=== PATIENT | male | born 1975 | race Caucasian/White ===

== ENCOUNTER 2016-09-21 22:14 | Emergency (ER) | payer MEDICAID, OTHER ==
[~2016-09-21] VITALS: Ht 182.9 cm; Wt 127.7 kg
[~2016-09-21 22:14] MED LIST: GABA-531 PO; OMEP20 PO; SERT50TA12 PO
[2016-09-21] MEDS ORDERED: TRAM50TA4 PO (22:27)
[2016-09-21] MEDS ORDERED: MORP15 PO (22:27)
[2016-09-21 23:47] LABS: BASOPHILS % (AUTO) 0.6 % (0.0-2.0); EOSINOPHILS % (AUTO) 1.6 % (1.0-6.0); HEMATOCRIT 41.9 % (41-53); HEMOGLOBIN 13.4 g/dL (13.5-17.5); LYMPHOCYTES # (AUTO) 2.6 K/uL (1.0-4.8); LYMPHOCYTES % (AUTO) 37.8 % (22.0-44.0); MEAN CORPUSCULAR HEMOGLOBIN 25.7 pg (26.0-34.0); MEAN CORPUSCULAR VOLUME 80 fL (80-100); MONOCYTES # (AUTO) 0.5 K/uL (0.1-1.0); MONOCYTES % (AUTO) 6.9 % (2.0-9.0); NEUTROPHILS # (AUTO) 3.6 K/uL (1.8-7.7); NEUTROPHILS % (AUTO) 53.1 % (40.0-70.0); PLATELET COUNT (AUTO) 200 K/uL (150-450); RED BLOOD CELL COUNT(AUTO) 5.24 MIL/uL (4.50-5.90); RED CELL DISTRIBUTION WIDTH 16.5 % (11.5-14.5); WHITE BLOOD COUNT (AUTO) 6.8 K/uL (4.5-11.0)
[2016-09-21 23:57] LABS: ANION GAP 11 mmol/L (8-16); CALCIUM, TOTAL 8.4 mg/dL (8.8-10.5); CARBON DIOXIDE 26 mmol/L (22-29); CHLORIDE 104 mmol/L (98-107); GLOMERULAR FILTR. RATE CALC > 60 mL/min (>60); POTASSIUM 3.8 mmol/L (3.5-5.1); SODIUM SERUM 141 mmol/L (136-145); UREA NITROGEN, BLOOD 12 mg/dL (7-18)
[2016-09-22] LABS: ALANINE AMINOTRANSFERASE 38 U/L (12-78); ALBUMIN 3.9 g/dL (3.4-5.0); ASPARTATE AMINOTRANSFERASE 29 U/L (15-37); BILIRUBIN,TOTAL 0.5 mg/dL (0.1-1.0); TOTAL PROTEIN, SERUM 7.4 g/dL (6.4-8.2)
[2016-09-22] MEDS ORDERED: TraMADol HCL 50 MG TABLET PO ONE (02:30)
[2016-09-22] MEDS ORDERED: MORPHINE SULFATE 10 MG/ML SYRINGE IM ONE (03:15)
[2016-09-22] MEDS ORDERED: DEXAMETHASONE SOD PHOS 4 MG/ML 5 ML VIAL IM ONE (03:15)
[2016-09-22] MEDS ORDERED: LORazepam 2 MG/ML VIAL IM ONE (03:15)
[2016-09-22 05:55] VITALS: BP 116/89
== END 2016-09-22 07:26 | disposition home or self-care (01) ==
LOC: EMS 22:16
DX: S39.012A Strain of muscle, fascia and tendon of lower back, initial encounter (principal); F11.90 Opioid use, unspecified, uncomplicated; F12.90 Cannabis use, unspecified, uncomplicated; F15.90 Other stimulant use, unspecified, uncomplicated; F17.210 Nicotine dependence, cigarettes, uncomplicated; Z88.0 Allergy status to penicillin; Z88.8 Allergy status to other drugs, medicaments and biological substances; X58.XXXA Exposure to other specified factors, initial encounter; Y93.89 Activity, other specified; Y92.89 Other specified places as the place of occurrence of the external cause; Y99.8 Other external cause status
CPT/HCPCS: 36415; 71010; 80053; 84484; 85025; 93005; 96372; 99285; J1100; J2060; J2270

== ENCOUNTER 2016-11-11 01:16 | Inpatient (IN) | payer MEDICAID, OTHER ==
[~2016-11-11] VITALS: Ht 182.9 cm; Wt 117.0 kg
[2016-11-11] VITALS (9 sets, daily range): BP systolic 128–148; BP diastolic 78–91
[~2016-11-11 01:16] MED LIST changes: +MORP15 PO; -SERT50TA12 PO; +TRAM50TA4 PO
[2016-11-11] MEDS ORDERED: DIVA500T35 PO (02:38)
[2016-11-11] MEDS ORDERED: TRAM50TA4 PO (02:38)
[2016-11-11] MEDS ORDERED: GABAPENTIN 400 MG CAPSULE PO ONE (03:00)
[2016-11-11 03:31] LABS: BASOPHILS # (AUTO) 0.03 K/uL (0.00-0.20); BASOPHILS % (AUTO) 0.4 % (0.0-2.0); EOSINOPHILS # (AUTO) 0.02 K/uL (0.00-0.70); EOSINOPHILS % (AUTO) 0.19 % (1.0-6.0); HEMATOCRIT 44.9 % (41-53); HEMOGLOBIN 14.6 g/dL (13.5-17.5); LYMPHOCYTES # (AUTO) 2.5 K/uL (1.0-4.8); MEAN CORPUSCULAR HGB CONC 32.6 G/dL (31.0-37.0); MEAN CORPUSCULAR VOLUME 77 fL (80-100); MONOCYTES # (AUTO) 0.5 K/uL (0.1-1.0); MONOCYTES % (AUTO) 5.7 % (2.0-9.0); NEUTROPHILS % (AUTO) 62.7 % (40.0-70.0); PLATELET COUNT (AUTO) 253 K/uL (150-450); RED BLOOD CELL COUNT(AUTO) 5.85 MIL/uL (4.50-5.90); RED CELL DISTRIBUTION WIDTH 16.2 % (11.5-14.5); WHITE BLOOD COUNT (AUTO) 7.9 K/uL (4.5-11.0)
[2016-11-11 03:32] LABS: ANION GAP 16 mmol/L (8-16); CALCIUM, TOTAL 8.1 mg/dL (8.8-10.5); CARBON DIOXIDE 24 mmol/L (22-29); CHLORIDE 102 mmol/L (98-107); CREATININE 0.96 mg/dL (0.60-1.30); GLOMERULAR FILTR. RATE CALC > 60 mL/min (>60); POTASSIUM 3.8 mmol/L (3.5-5.1); SODIUM SERUM 142 mmol/L (136-145); UREA NITROGEN, BLOOD 13 mg/dL (7-18)
[2016-11-11 03:39] LABS: ALANINE AMINOTRANSFERASE 35 U/L (12-78); ALBUMIN 4.1 g/dL (3.4-5.0); ASPARTATE AMINOTRANSFERASE 31 U/L (15-37); BILIRUBIN,TOTAL 0.7 mg/dL (0.1-1.0)
[2016-11-11] MEDS ORDERED: DiphenhydrAMINE HCL 50 MG/ML VIAL IM ONE (03:45)
[2016-11-11] MEDS ORDERED: LORazepam 2 MG/ML VIAL IM ONE (03:45)
[2016-11-11] MEDS ORDERED: HALOPERIDOL LACTATE 5 MG/ML VIAL IM ONE (03:45)
[2016-11-11] MEDS ORDERED: ZOLPIDEM TARTRATE 10 MG TABLET PO PRN (06:45)
[2016-11-11] MEDS ORDERED: LORazepam 2 MG TABLET PO PRN (06:45)
[2016-11-11] MEDS ORDERED: HALOPERIDOL 5 MG TABLET PO PRN (06:45)
[2016-11-11] MEDS ORDERED: MAGNESIUM HYDROXIDE SUSPENSION 30 ML UDCUP PO PRN (15:00)
[2016-11-11] MEDS ORDERED: MAG HYDROX/AL HYDROX/SIMETH ES 30 ML SUSPENSION UDCUP PO PRN (15:00)
[2016-11-11] MEDS ORDERED: HydrOXYzine PAMOATE 50 MG CAPSULE PO PRN (15:00)
[2016-11-11] MEDS ORDERED: GuaiFENesin/D-METHORPHAN [SUGAR-FREE] 200-20MG/10 ML SYRUP UDCUP PO PRN (15:00)
[2016-11-11] MEDS ORDERED: LOPERAMIDE HCL 2 MG CAPSULE PO PRN ×2 (15:00)
[2016-11-11] MEDS ORDERED: CYANOCOBALAMIN 1,000 MCG/ML VIAL IM ONE (15:00)
[2016-11-11] MEDS ORDERED: ACETAMINOPHEN 325 MG TABLET PO PRN (15:00)
[2016-11-11] MEDS ORDERED: TUBERCULIN, PURIFIED PROTEIN DERIVATIVE 5 TU/0.1 ML SYG ID ONE (15:00)
[2016-11-11] MEDS: GABAPENTIN 400 MG CAPSULE PO SCH (16:13)
[2016-11-11] MEDS: DIAZEPAM 10 MG TABLET PO PRN ×3 (16:14→20:32)
[2016-11-11] MEDS: ACAMPROSATE CALCIUM 333 MG DR TABLET PO SCH (17:00)
[2016-11-11] MEDS: THIAMINE HCL 100 MG TABLET PO SCH (18:41)
[2016-11-12] VITALS (8 sets, daily range): BP systolic 126–139; BP diastolic 74–84
[2016-11-12] MEDS ORDERED: DIAZEPAM 10 MG TABLET PO PRN (07:00)
[2016-11-12] MEDS: GABAPENTIN 400 MG CAPSULE PO SCH ×4 (08:41→16:06)
[2016-11-12] MEDS: MULTIVITAMINS WITH MINERALS, THERAPEUTIC TABLET PO SCH (08:41)
[2016-11-12] MEDS: DULoxetine HCL 20 MG CAPSULE PO SCH ×2 (08:42→09:00)
[2016-11-12] MEDS: THIAMINE HCL 100 MG TABLET PO SCH ×2 (08:42→16:06)
[2016-11-12] MEDS: FOLIC ACID 1 MG TABLET PO SCH (08:43)
[2016-11-12] MEDS: DIAZEPAM 10 MG TABLET PO SCH ×4 (08:43→21:48)
[2016-11-12] MEDS: ACAMPROSATE CALCIUM 333 MG DR TABLET PO SCH ×3 (09:00→17:00)
[2016-11-12] MEDS ORDERED: DULO20CA30 PO (12:47)
[2016-11-12] MEDS ORDERED: ACAM333T7 PO (12:47)
[2016-11-12] MEDS ORDERED: GABA-533 PO (12:57)
[2016-11-13 07:26] VITALS: BP 126/78
[2016-11-13 07:27] VITALS: BP 126/78
[2016-11-13 08:30] VITALS: BP 153/98
[2016-11-13] MEDS: MULTIVITAMINS WITH MINERALS, THERAPEUTIC TABLET PO SCH (09:00)
[2016-11-13] MEDS: ACAMPROSATE CALCIUM 333 MG DR TABLET PO SCH (09:00)
[2016-11-13] MEDS: DULoxetine HCL 20 MG CAPSULE PO SCH (09:00)
[2016-11-13] MEDS: THIAMINE HCL 100 MG TABLET PO SCH (09:00)
[2016-11-13] MEDS: FOLIC ACID 1 MG TABLET PO SCH (09:00)
[2016-11-13] MEDS: DIAZEPAM 10 MG TABLET PO SCH (09:00)
[2016-11-13] MEDS: GABAPENTIN 400 MG CAPSULE PO SCH (09:25)
[2016-11-14] MEDS ORDERED: DIAZEPAM 5 MG TABLET PO PRN (07:00)
[2016-11-14] MEDS ORDERED: DIAZEPAM 5 MG TABLET PO SCH (09:00)
[2016-11-15] MEDS ORDERED: DIAZEPAM 5 MG TABLET PO PRN (07:00)
== END 2016-11-13 10:10 | disposition home or self-care (01) | DRG 751 ==
LOC: EMS 01:18 → 3EI 05:02 → UNDOADMIN 05:08
PROVIDERS: ADMIT Psychiatry & Neurology Psychiatry; ATTEND Psychiatry & Neurology Psychiatry
PROC: GZHZZZZ Group Psychotherapy (ICD-10-PCS; principal; 2016-11-11)
PROC: GZ51ZZZ Individual Psychotherapy, Behavioral (ICD-10-PCS; 2016-11-11)
DX: F33.9 Major depressive disorder, recurrent, unspecified (principal); R45.851 Suicidal ideations; J44.9 Chronic obstructive pulmonary disease, unspecified; F20.9 Schizophrenia, unspecified; G40.909 Epilepsy, unspecified, not intractable, without status epilepticus; I10 Essential (primary) hypertension; E66.9 Obesity, unspecified; E78.5 Hyperlipidemia, unspecified; F10.229 Alcohol dependence with intoxication, unspecified; F15.10 Other stimulant abuse, uncomplicated; Z53.29 Procedure and treatment not carried out because of patient's decision for other reasons; F17.220 Nicotine dependence, chewing tobacco, uncomplicated; Y90.8 Blood alcohol level of 240 mg/100 ml or more; G89.29 Other chronic pain; Z91.19 Patient's noncompliance with other medical treatment and regimen; Z88.0 Allergy status to penicillin; Z71.6 Tobacco abuse counseling; Z90.49 Acquired absence of other specified parts of digestive tract; Z88.8 Allergy status to other drugs, medicaments and biological substances; Z68.35 Body mass index [BMI] 35.0-35.9, adult; Z79.899 Other long term (current) drug therapy; Z91.5 Personal history of self-harm
CPT/HCPCS: 87081; 93005; 96372; 99285; G0480; J1200; J1630; J2060; J3420

== ENCOUNTER 2017-04-01 00:57 | Inpatient (IN) | payer MEDICAID, OTHER ==
[~2017-04-01] VITALS: Ht 182.9 cm; Wt 119.3 kg
[~2017-04-01 00:57] MED LIST changes: +ACAM333T7 PO; +DULO20CA30 PO; -GABA-531 PO; +GABA-533 PO; -MORP15 PO; -OMEP20 PO; -TRAM50TA4 PO
[2017-04-01 01:38] LABS: ANION GAP 25 mmol/L (8-16); CALCIUM, TOTAL 8.3 mg/dL (8.8-10.5); CARBON DIOXIDE 15 mmol/L (22-29); CHLORIDE 95 mmol/L (98-107); CREATININE 1.11 mg/dL (0.60-1.30); GLOMERULAR FILTR. RATE CALC > 60 mL/min (>60); POTASSIUM 3.8 mmol/L (3.5-5.1); SODIUM SERUM 135 mmol/L (136-145); UREA NITROGEN, BLOOD 14 mg/dL (7-18)
[2017-04-01 01:39] LABS: BASOPHILS % (AUTO) 0.3 % (0.0-2.0); EOSINOPHILS % (AUTO) 0.1 % (1.0-6.0); HEMATOCRIT 44.3 % (41-53); HEMOGLOBIN 14.7 g/dL (13.5-17.5); LYMPHOCYTES # (AUTO) 1.9 K/uL (1.0-4.8); LYMPHOCYTES % (AUTO) 22.8 % (22.0-44.0); MEAN CORPUSCULAR HEMOGLOBIN 25.3 pg (26.0-34.0); MEAN CORPUSCULAR HGB CONC 33.2 G/dL (31.0-37.0); MEAN CORPUSCULAR VOLUME 76 fL (80-100); MONOCYTES # (AUTO) 0.3 K/uL (0.1-1.0); NEUTROPHILS # (AUTO) 5.9 K/uL (1.8-7.7); NEUTROPHILS % (AUTO) 72.8 % (40.0-70.0); PLATELET COUNT (AUTO) 220 K/uL (150-450); RED CELL DISTRIBUTION WIDTH 15.8 % (11.5-14.5); WHITE BLOOD COUNT (AUTO) 8.2 K/uL (4.5-11.0)
[2017-04-01 01:43] LABS: ALANINE AMINOTRANSFERASE 53 U/L (12-78); ALBUMIN 4.6 g/dL (3.4-5.0); ASPARTATE AMINOTRANSFERASE 69 U/L (15-37); TOTAL PROTEIN, SERUM 8.4 g/dL (6.4-8.2)
[2017-04-01] MEDS ORDERED: ZOLPIDEM TARTRATE 10 MG TABLET PO PRN (06:00)
[2017-04-01] MEDS ORDERED: LORazepam 2 MG TABLET PO PRN (06:00)
[2017-04-01] MEDS ORDERED: HALOPERIDOL 5 MG TABLET PO PRN (06:00)
[2017-04-01 08:21] VITALS: BP 144/98
[2017-04-01] MEDS ORDERED: LOPERAMIDE HCL 2 MG CAPSULE PO PRN ×2 (09:45→11:15)
[2017-04-01] MEDS ORDERED: MAGNESIUM HYDROXIDE SUSPENSION 30 ML UDCUP PO PRN (09:45)
[2017-04-01] MEDS ORDERED: ALBUTEROL SULFATE HFA 90 MCG/PUFF 8 GM INHALER IH PRN (09:45)
[2017-04-01] MEDS ORDERED: ACETAMINOPHEN 325 MG TABLET PO PRN (09:45)
[2017-04-01] MEDS ORDERED: PETROLATUM,WHITE 71 GM JELLY TP PRN (09:45)
[2017-04-01] MEDS ORDERED: BENZOCAINE/MENTHOL LOZENGE [8 LOZENGES/PACKET] MM PRN (09:45)
[2017-04-01] MEDS ORDERED: BACITRACIN 28.4 GM OINTMENT TP PRN (09:45)
[2017-04-01] MEDS ORDERED: MAG HYDROX/AL HYDROX/SIMETH ES 30 ML SUSPENSION UDCUP PO PRN (09:45)
[2017-04-01] MEDS ORDERED: ONDANSETRON HCL 4 MG TABLET PO PRN (09:45)
[2017-04-01] MEDS ORDERED: CloNIDine HCL 0.1 MG TABLET PO PRN (09:45)
[2017-04-01] MEDS: LISINOPRIL 10 MG TABLET PO SCH (10:32)
[2017-04-01] MEDS ORDERED: GuaiFENesin/D-METHORPHAN [SUGAR-FREE] 200-20MG/10 ML SYRUP UDCUP PO PRN (11:15)
[2017-04-01] MEDS ORDERED: CYANOCOBALAMIN 1,000 MCG/ML VIAL IM ONE (11:15)
[2017-04-01 11:30] VITALS: BP 140/80
[2017-04-01 12:30] VITALS: BP 138/69
[2017-04-01 13:36] VITALS: BP 113/67
[2017-04-01] MEDS: LORazepam 2 MG TABLET PO PRN ×2 (14:25→16:25)
[2017-04-01 14:44] VITALS: BP 146/70
[2017-04-01 15:30] VITALS: BP 136/70
[2017-04-01] MEDS: THIAMINE HCL 100 MG TABLET PO SCH (21:40)
[2017-04-02] MEDS ORDERED: LORazepam 2 MG TABLET PO PRN (07:00)
[2017-04-02 07:30] VITALS: BP 122/77
[2017-04-02 08:00] VITALS: BP 122/77
[2017-04-02] MEDS: FISH OIL/OMEGA-3 FATTY ACIDS 500 MG CAPSULE PO SCH (09:12)
[2017-04-02] MEDS: FOLIC ACID 1 MG TABLET PO SCH (09:12)
[2017-04-02] MEDS: LORazepam 2 MG TABLET PO SCH ×4 (09:12→22:04)
[2017-04-02] MEDS: THIAMINE HCL 100 MG TABLET PO SCH (09:13)
[2017-04-02] MEDS: LISINOPRIL 10 MG TABLET PO SCH (09:13)
[2017-04-02] MEDS: MULTIVITAMINS WITH MINERALS, THERAPEUTIC TABLET PO SCH (09:13)
[2017-04-02] MEDS: DULoxetine HCL 20 MG CAPSULE PO SCH (13:41)
[2017-04-02] MEDS: GABAPENTIN 400 MG CAPSULE PO SCH (16:38)
[2017-04-02] MEDS: QUEtiapine FUMARATE 100 MG TABLET PO PRN (17:35)
[2017-04-02 20:39] VITALS: BP 130/81
[2017-04-03 04:30] VITALS: BP 145/101
[2017-04-03] MEDS: QUEtiapine FUMARATE 100 MG TABLET PO PRN ×2 (04:59→10:28)
[2017-04-03 08:45] VITALS: BP 111/62
[2017-04-03] MEDS: LISINOPRIL 10 MG TABLET PO SCH (10:26)
[2017-04-03] MEDS: GABAPENTIN 400 MG CAPSULE PO SCH (10:26)
[2017-04-03] MEDS: FISH OIL/OMEGA-3 FATTY ACIDS 500 MG CAPSULE PO SCH (10:26)
[2017-04-03] MEDS: FOLIC ACID 1 MG TABLET PO SCH (10:26)
[2017-04-03] MEDS: THIAMINE HCL 100 MG TABLET PO SCH (10:26)
[2017-04-03] MEDS: MULTIVITAMINS WITH MINERALS, THERAPEUTIC TABLET PO SCH (10:26)
[2017-04-03] MEDS: DULoxetine HCL 20 MG CAPSULE PO SCH (10:26)
[2017-04-03] MEDS: LORazepam 2 MG TABLET PO SCH (10:27)
[2017-04-03 10:28] VITALS: BP 111/62
[2017-04-03] MEDS ORDERED: DULO20CA30 PO (12:46)
[2017-04-03] MEDS ORDERED: GABA-533 PO (12:46)
[2017-04-03] MEDS ORDERED: FOLI1 PO (12:48)
[2017-04-03] MEDS ORDERED: LISI-661 PO (12:48)
[2017-04-03] MEDS ORDERED: OMEG-12 PO (12:48)
[2017-04-03] MEDS ORDERED: THIA100 PO (12:49)
[2017-04-03] MEDS ORDERED: MV-M1TAB2 PO (12:49)
[2017-04-04] MEDS ORDERED: LORazepam 1 MG TABLET PO PRN (07:00)
[2017-04-04] MEDS ORDERED: LORazepam 1 MG TABLET PO SCH (09:00)
[2017-04-05] MEDS ORDERED: LORazepam 1 MG TABLET PO PRN (07:00)
== END 2017-04-03 14:52 | disposition home or self-care (01) | DRG 751 ==
LOC: EMS 00:59 → AHU 06:18 → 3EI 04-02 18:27
PROC: HZ2ZZZZ Detoxification Services for Substance Abuse Treatment (ICD-10-PCS; principal; 2017-04-02)
DX: F33.3 Major depressive disorder, recurrent, severe with psychotic symptoms (principal); E87.1 Hypo-osmolality and hyponatremia; E83.51 Hypocalcemia; R45.851 Suicidal ideations; G40.909 Epilepsy, unspecified, not intractable, without status epilepticus; I10 Essential (primary) hypertension; E78.5 Hyperlipidemia, unspecified; E66.9 Obesity, unspecified; F10.229 Alcohol dependence with intoxication, unspecified; F17.210 Nicotine dependence, cigarettes, uncomplicated; G47.00 Insomnia, unspecified; Z90.49 Acquired absence of other specified parts of digestive tract; Z88.0 Allergy status to penicillin; Z68.35 Body mass index [BMI] 35.0-35.9, adult
CPT/HCPCS: 87081; 99285; G0480; J3420

== ENCOUNTER 2017-09-26 22:27 | Emergency (ER) | payer MEDICAID, OTHER ==
[~2017-09-26] VITALS: Ht 182.9 cm; Wt 127.3 kg
[~2017-09-26 22:27] MED LIST changes: -ACAM333T7 PO; +FOLI1 PO; +LISI-661 PO; +MV-M1TAB2 PO; +OMEG-12 PO; +THIA100 PO
[2017-09-27 04:52] VITALS: BP 149/86
== END 2017-09-27 05:20 | disposition home or self-care (01) ==
LOC: EMS 22:28
DX: F25.9 Schizoaffective disorder, unspecified (principal); R41.82 Altered mental status, unspecified; F32.9 Major depressive disorder, single episode, unspecified; F10.239 Alcohol dependence with withdrawal, unspecified; F17.210 Nicotine dependence, cigarettes, uncomplicated; F12.90 Cannabis use, unspecified, uncomplicated; F11.90 Opioid use, unspecified, uncomplicated; F15.90 Other stimulant use, unspecified, uncomplicated; G89.29 Other chronic pain; Z88.0 Allergy status to penicillin; Z88.6 Allergy status to analgesic agent
CPT/HCPCS: 99284; 99406

== ENCOUNTER 2017-09-28 18:08 | Emergency (ER) | payer OTHER ==
[~2017-09-28] VITALS: Ht 177.8 cm; Wt 105.0 kg
[2017-09-28] MEDS ORDERED: SODIUM CHLORIDE 0.9% 1,000 ML IV ONE (18:45)
[2017-09-28 19:44] VITALS: BP 140/87
== END 2017-09-28 20:21 | disposition home or self-care (01) ==
LOC: EMS 18:08
DX: T51.0X1A Toxic effect of ethanol, accidental (unintentional), initial encounter (principal); R00.0 Tachycardia, unspecified; F17.210 Nicotine dependence, cigarettes, uncomplicated; F32.9 Major depressive disorder, single episode, unspecified; F20.9 Schizophrenia, unspecified; Z88.0 Allergy status to penicillin; Z88.6 Allergy status to analgesic agent; Z79.899 Other long term (current) drug therapy; Z86.14 Personal history of Methicillin resistant Staphylococcus aureus infection; Z86.711 Personal history of pulmonary embolism; Y92.89 Other specified places as the place of occurrence of the external cause
CPT/HCPCS: 93005; 99283

== ENCOUNTER 2017-12-07 02:44 | Emergency (ER) | payer OTHER ==
[~2017-12-07] VITALS: Ht 182.9 cm; Wt 90.9 kg
[~2017-12-07 02:44] MED LIST changes: -THIA100 PO; +THIA100T67 PO
[2017-12-07] MEDS ORDERED: MAGNESIUM SULFATE 2 GM, MVI, ADULT NO.1 WITH VIT K 10 ML, THIAMINE HCL 100 MG, FOLIC AC... IV ONE ×5 (05:15)
[2017-12-07] MEDS ORDERED: ONDANSETRON HCL 4 MG/2 ML VIAL IVP ONE (05:15)
[2017-12-07] MEDS ORDERED: SODIUM CHLORIDE 0.9% 1,000 ML IV ONE (05:15)
[2017-12-07 06:16] LABS: ANION GAP 15 mmol/L (8-16); CARBON DIOXIDE 29 mmol/L (22-29); CHLORIDE 103 mmol/L (98-107); CREATININE 0.92 mg/dL (0.60-1.30); GLOMERULAR FILTR. RATE CALC > 60 mL/min (>60); GLUCOSE,RANDOM 90 mg/dL (70-110); POTASSIUM 3.5 mmol/L (3.5-5.1); SODIUM SERUM 147 mmol/L (136-145); UREA NITROGEN, BLOOD 7 mg/dL (7-18)
[2017-12-07 06:21] LABS: ALANINE AMINOTRANSFERASE 254 U/L (12-78); ALBUMIN 3.9 g/dL (3.4-5.0); ALKALINE PHOSPHATASE 72 U/L (46-116); ASPARTATE AMINOTRANSFERASE 244 U/L (15-37); BILIRUBIN,TOTAL 0.5 mg/dL (0.1-1.0); TOTAL PROTEIN, SERUM 7.7 g/dL (6.4-8.2)
[2017-12-07 06:40] LABS: BASOPHILS % (AUTO) 1.4 % (0.0-2.0); EOSINOPHILS % (AUTO) 1.4 % (1.0-6.0); HEMATOCRIT 40.2 % (41-53); HEMOGLOBIN 13.3 g/dL (13.5-17.5); LYMPHOCYTES # (AUTO) 1.3 K/uL (1.0-4.8); LYMPHOCYTES % (AUTO) 48.7 % (22.0-44.0); MEAN CORPUSCULAR VOLUME 82 fL (80-100); MONOCYTES # (AUTO) 0.3 K/uL (0.1-1.0); MONOCYTES % (AUTO) 9.8 % (2.0-9.0); NEUTROPHILS # (AUTO) 1.1 K/uL (1.8-7.7); NEUTROPHILS % (AUTO) 38.7 % (40.0-70.0); PLATELET COUNT (AUTO) 154 K/uL (150-450); RED BLOOD CELL COUNT(AUTO) 4.92 MIL/uL (4.50-5.90); RED CELL DISTRIBUTION WIDTH 22.4 % (11.5-14.5)
[2017-12-07 08:56] VITALS: BP 115/67
== END 2017-12-07 09:00 | disposition home or self-care (01) ==
LOC: EMS 02:46
DX: F10.239 Alcohol dependence with withdrawal, unspecified (principal); R47.81 Slurred speech; F17.210 Nicotine dependence, cigarettes, uncomplicated; F12.90 Cannabis use, unspecified, uncomplicated; F15.90 Other stimulant use, unspecified, uncomplicated; F11.90 Opioid use, unspecified, uncomplicated; G89.29 Other chronic pain; Z88.0 Allergy status to penicillin; Z88.8 Allergy status to other drugs, medicaments and biological substances; Y90.8 Blood alcohol level of 240 mg/100 ml or more
CPT/HCPCS: 36415; 80053; 85025; 96365; 96375; 99284; G0480; J2405; J3411; J3475; J3490 ×2; J7030

== ENCOUNTER 2018-03-17 16:17 | Emergency (ER) | payer OTHER ==
[~2018-03-17] VITALS: Ht 182.9 cm; Wt 127.3 kg
[~2018-03-17 16:17] MED LIST changes: +APIX5TAB PO
[2018-03-17] MEDS ORDERED: TraMADol HCL 50 MG TABLET PO ONE (17:15)
[2018-03-17] MEDS ORDERED: GABAPENTIN 300 MG CAPSULE PO ONE (17:15)
[2018-03-17 18:52] VITALS: BP 178/91
== END 2018-03-17 20:02 | disposition home or self-care (01) ==
LOC: EMS 16:19
DX: I82.402 Acute embolism and thrombosis of unspecified deep veins of left lower extremity (principal); F10.21 Alcohol dependence, in remission; R07.89 Other chest pain; R42 Dizziness and giddiness; F32.9 Major depressive disorder, single episode, unspecified; F20.9 Schizophrenia, unspecified; F17.220 Nicotine dependence, chewing tobacco, uncomplicated; F12.90 Cannabis use, unspecified, uncomplicated; F11.90 Opioid use, unspecified, uncomplicated; F15.90 Other stimulant use, unspecified, uncomplicated; G89.29 Other chronic pain; Z79.899 Other long term (current) drug therapy; Z88.6 Allergy status to analgesic agent; Z88.0 Allergy status to penicillin; Z88.8 Allergy status to other drugs, medicaments and biological substances
CPT/HCPCS: 70450; 93005; 99284

== ENCOUNTER 2018-03-20 13:35 | Emergency (ER) | payer SELFPAY ==
[~2018-03-20] VITALS: Ht 182.9 cm; Wt 122.7 kg
[2018-03-20] MEDS ORDERED: blood thinner PO (13:55)
[2018-03-20 15:39] LABS: BASOPHILS % (AUTO) 1.1 % (0.0-2.0); EOSINOPHILS % (AUTO) 1.3 % (1.0-6.0); HEMATOCRIT 37.3 % (41-53); LYMPHOCYTES # (AUTO) 1.3 K/uL (1.0-4.8); LYMPHOCYTES % (AUTO) 16.9 % (22.0-44.0); MEAN CORPUSCULAR HEMOGLOBIN 26.6 pg (26.0-34.0); MEAN CORPUSCULAR HGB CONC 32.3 G/dL (31.0-37.0); MEAN CORPUSCULAR VOLUME 83 fL (80-100); MONOCYTES # (AUTO) 0.4 K/uL (0.1-1.0); MONOCYTES % (AUTO) 5.4 % (2.0-9.0); NEUTROPHILS # (AUTO) 5.6 K/uL (1.8-7.7); NEUTROPHILS % (AUTO) 75.3 % (40.0-70.0); PLATELET COUNT (AUTO) 326 K/uL (150-450); RED BLOOD CELL COUNT(AUTO) 4.52 MIL/uL (4.50-5.90); RED CELL DISTRIBUTION WIDTH 19.6 % (11.5-14.5)
[2018-03-20 15:53] LABS: ANION GAP 11 mmol/L (8-16); CALCIUM, TOTAL 8.8 mg/dL (8.8-10.5); CARBON DIOXIDE 26 mmol/L (22-29); CHLORIDE 105 mmol/L (98-107); CREATININE 1.11 mg/dL (0.60-1.30); GLOMERULAR FILTR. RATE CALC > 60 mL/min (>60); GLUCOSE,RANDOM 97 mg/dL (70-110); POTASSIUM 3.8 mmol/L (3.5-5.1); SODIUM SERUM 142 mmol/L (136-145); UREA NITROGEN, BLOOD 12 mg/dL (7-18)
[2018-03-20 15:55] LABS: ALANINE AMINOTRANSFERASE 84 U/L (12-78); ALKALINE PHOSPHATASE 58 U/L (46-116); ASPARTATE AMINOTRANSFERASE 36 U/L (15-37); BILIRUBIN,TOTAL 0.6 mg/dL (0.1-1.0); LIPASE 304 U/L (73-393); TOTAL PROTEIN, SERUM 7.7 g/dL (6.4-8.2)
[2018-03-20] MEDS ORDERED: TraMADol HCL 50 MG TABLET PO ONE ×2 (19:00)
[2018-03-20] MEDS ORDERED: GABAPENTIN 300 MG CAPSULE PO ONE (19:30)
[2018-03-20 20:56] VITALS: BP 142/83
== END 2018-03-20 21:13 | disposition home or self-care (01) ==
LOC: EMS 13:36
DX: M79.605 Pain in left leg (principal); G89.29 Other chronic pain; Z86.718 Personal history of other venous thrombosis and embolism; R11.2 Nausea with vomiting, unspecified; R05 Cough; F10.20 Alcohol dependence, uncomplicated; F32.9 Major depressive disorder, single episode, unspecified; F15.10 Other stimulant abuse, uncomplicated; F12.10 Cannabis abuse, uncomplicated; F11.10 Opioid abuse, uncomplicated; F17.210 Nicotine dependence, cigarettes, uncomplicated; F20.9 Schizophrenia, unspecified; Z79.899 Other long term (current) drug therapy; Z88.6 Allergy status to analgesic agent; Z88.5 Allergy status to narcotic agent; Z88.0 Allergy status to penicillin; Y90.9 Presence of alcohol in blood, level not specified
CPT/HCPCS: 93005; 99285; 99406

== ENCOUNTER 2018-03-21 23:53 | Emergency (ER) | payer OTHER ==
[~2018-03-21] VITALS: Ht 182.9 cm; Wt 122.7 kg
[~2018-03-21 23:53] MED LIST changes: -APIX5TAB PO; -FOLI1 PO; -LISI-661 PO; -MV-M1TAB2 PO; -OMEG-12 PO; -THIA100T67 PO; +blood thinner PO
[2018-03-22 00:09] VITALS: BP 160/120
[2018-03-22] MEDS ORDERED: LISI-661 PO (00:11)
[2018-03-22] MEDS ORDERED: RIVA15T PO (00:11)
== END 2018-03-22 01:20 | disposition left against medical advice (07) ==
LOC: EMS 23:53
DX: K92.2 Gastrointestinal hemorrhage, unspecified (principal); R05 Cough; F10.20 Alcohol dependence, uncomplicated; F32.9 Major depressive disorder, single episode, unspecified; F20.9 Schizophrenia, unspecified; G89.29 Other chronic pain; F17.210 Nicotine dependence, cigarettes, uncomplicated; Z86.718 Personal history of other venous thrombosis and embolism; Z98.890 Other specified postprocedural states; Z86.14 Personal history of Methicillin resistant Staphylococcus aureus infection; Z86.711 Personal history of pulmonary embolism; Z88.0 Allergy status to penicillin; Z88.6 Allergy status to analgesic agent; Z79.899 Other long term (current) drug therapy
CPT/HCPCS: 99281

== ENCOUNTER 2018-04-13 01:54 | Emergency (ER) | payer SELFPAY ==
[~2018-04-13] VITALS: Ht 182.9 cm; Wt 122.7 kg
[~2018-04-13 01:54] MED LIST changes: +LISI-661 PO; +RIVA15T PO; -blood thinner PO
[2018-04-13] MEDS ORDERED: SODIUM CHLORIDE 0.9% 1,000 ML IV ONE (03:15)
[2018-04-13] MEDS ORDERED: ONDANSETRON HCL 4 MG/2 ML VIAL IVP ONE (03:15)
[2018-04-13] MEDS ORDERED: MORPHINE SULFATE 4 MG/ML SYRINGE IVP ONE ×2 (03:15→05:45)
[2018-04-13 04:22] LABS: APPEARANCE,URINE CLEAR (CLEAR); BILIRUBIN,URINE NEGATIVE (NEGATIVE); GLUCOSE, URINE (UA) NEGATIVE (NEGATIVE); KETONES,URINE NEGATIVE (NEGATIVE); LEUKOCYTE ESTERASE ,URINE NEGATIVE (NEGATIVE); NITRATE,URINE NEGATIVE (NEGATIVE); OCCULT BLOOD,URINE NEGATIVE (NEGATIVE); PH,URINE 5.5 (5.0-8.0); PROTEIN,URINE NEGATIVE (NEGATIVE); UROBILINOGEN,URINE 0.2 mg/dL (<=1.0)
[2018-04-13 04:26] LABS: BASOPHILS % (AUTO) 0.7 % (0.0-2.0); EOSINOPHILS % (AUTO) 0.7 % (1.0-6.0); HEMOGLOBIN 11.8 g/dL (13.5-17.5); LYMPHOCYTES % (AUTO) 29.1 % (22.0-44.0); MEAN CORPUSCULAR HEMOGLOBIN 25.4 pg (26.0-34.0); MEAN CORPUSCULAR HGB CONC 32.7 G/dL (31.0-37.0); MEAN CORPUSCULAR VOLUME 78 fL (80-100); MONOCYTES # (AUTO) 0.5 K/uL (0.1-1.0); MONOCYTES % (AUTO) 7.6 % (2.0-9.0); NEUTROPHILS # (AUTO) 4.3 K/uL (1.8-7.7); NEUTROPHILS % (AUTO) 61.9 % (40.0-70.0); PLATELET COUNT (AUTO) 169 K/uL (150-450); RED BLOOD CELL COUNT(AUTO) 4.63 MIL/uL (4.50-5.90); RED CELL DISTRIBUTION WIDTH 18.4 % (11.5-14.5)
[2018-04-13 04:34] LABS: BACTERIA,URINE None Seen /HPF (None Seen); RBC,URINE 0-2 /HPF (0-2); SQUAMOUS EPITHELIAL CELL,UR Rare /LPF (None Seen); WBC,URINE 0-2 /HPF (0-5)
[2018-04-13 04:35] LABS: ANION GAP 7 mmol/L (8-16); CALCIUM, TOTAL 8.9 mg/dL (8.8-10.5); CARBON DIOXIDE 27 mmol/L (22-29); CHLORIDE 101 mmol/L (98-107); CREATININE 1.19 mg/dL (0.60-1.30); GLOMERULAR FILTR. RATE CALC > 60 mL/min (>60); GLUCOSE,RANDOM 141 mg/dL (70-110); POTASSIUM 3.1 mmol/L (3.5-5.1); SODIUM SERUM 135 mmol/L (136-145); UREA NITROGEN, BLOOD 10 mg/dL (7-18)
[2018-04-13 04:43] LABS: ALANINE AMINOTRANSFERASE 47 U/L (12-78); ALBUMIN 3.8 g/dL (3.4-5.0); ALKALINE PHOSPHATASE 56 U/L (46-116); ASPARTATE AMINOTRANSFERASE 37 U/L (15-37); LIPASE 166 U/L (73-393); TOTAL PROTEIN, SERUM 7.4 g/dL (6.4-8.2)
[2018-04-13] MEDS ORDERED: POTASSIUM CHLORIDE 20 MEQ ER TABLET PO ONE (05:00)
[2018-04-13] MEDS ORDERED: SODIUM CHLORIDE 0.9% 100 ML ONE (05:04)
[2018-04-13] MEDS ORDERED: IOVERSOL 350 MG/ML 150 ML VIAL ONE (05:04)
[2018-04-13 05:47] VITALS: BP 138/79
== END 2018-04-13 06:15 | disposition home or self-care (01) ==
LOC: EMS 01:55
DX: I82.402 Acute embolism and thrombosis of unspecified deep veins of left lower extremity (principal); R07.9 Chest pain, unspecified; I10 Essential (primary) hypertension; F32.9 Major depressive disorder, single episode, unspecified; F20.9 Schizophrenia, unspecified; F12.90 Cannabis use, unspecified, uncomplicated; F17.210 Nicotine dependence, cigarettes, uncomplicated; Z88.0 Allergy status to penicillin; Z88.5 Allergy status to narcotic agent; Z88.6 Allergy status to analgesic agent; Z88.8 Allergy status to other drugs, medicaments and biological substances
CPT/HCPCS: 36415; 71275; 80053; 81001; 83690; 84484; 85025; 93005; 96374; 96375; 96376; 99285; J2270; J2405; J7030; J7050; Q9967

== ENCOUNTER 2018-04-15 17:41 | Emergency (ER) | payer OTHER ==
[~2018-04-15] VITALS: Ht 182.9 cm; Wt 122.7 kg
[2018-04-15] MEDS ORDERED: RIVA15T PO (18:04)
[2018-04-15] MEDS ORDERED: HYD25 PO (18:06)
[2018-04-15] MEDS ORDERED: TRAM50TA4 PO (18:06)
[2018-04-15 18:35] LABS: BASOPHILS % (AUTO) 0.6 % (0.0-2.0); EOSINOPHILS % (AUTO) 0.6 % (1.0-6.0); HEMATOCRIT 38.3 % (41-53); HEMOGLOBIN 12.3 g/dL (13.5-17.5); LYMPHOCYTES % (AUTO) 24.8 % (22.0-44.0); MEAN CORPUSCULAR HEMOGLOBIN 25.2 pg (26.0-34.0); MEAN CORPUSCULAR HGB CONC 32.2 G/dL (31.0-37.0); MEAN CORPUSCULAR VOLUME 78 fL (80-100); MONOCYTES # (AUTO) 0.4 K/uL (0.1-1.0); MONOCYTES % (AUTO) 5.5 % (2.0-9.0); NEUTROPHILS # (AUTO) 5.4 K/uL (1.8-7.7); NEUTROPHILS % (AUTO) 68.5 % (40.0-70.0); PLATELET COUNT (AUTO) 172 K/uL (150-450); RED BLOOD CELL COUNT(AUTO) 4.89 MIL/uL (4.50-5.90); RED CELL DISTRIBUTION WIDTH 18.9 % (11.5-14.5)
[2018-04-15] MEDS ORDERED: MORPHINE SULFATE 4 MG/ML SYRINGE IVP ONE ×3 (18:45→21:30)
[2018-04-15 18:50] LABS: ANION GAP 10 mmol/L (8-16); CALCIUM, TOTAL 9.8 mg/dL (8.8-10.5); CARBON DIOXIDE 27 mmol/L (22-29); CHLORIDE 104 mmol/L (98-107); CREATININE 1.06 mg/dL (0.60-1.30); GLOMERULAR FILTR. RATE CALC > 60 mL/min (>60); GLUCOSE,RANDOM 102 mg/dL (70-110); POTASSIUM 3.6 mmol/L (3.5-5.1); SODIUM SERUM 141 mmol/L (136-145); UREA NITROGEN, BLOOD 9 mg/dL (7-18)
[2018-04-15 18:53] LABS: ALANINE AMINOTRANSFERASE 47 U/L (12-78); ALBUMIN 4.1 g/dL (3.4-5.0); ALKALINE PHOSPHATASE 57 U/L (46-116); ASPARTATE AMINOTRANSFERASE 24 U/L (15-37); BILIRUBIN,TOTAL 0.5 mg/dL (0.1-1.0); LIPASE 259 U/L (73-393); TOTAL PROTEIN, SERUM 7.9 g/dL (6.4-8.2)
[2018-04-15 18:54] LABS: B-TYPE NATRIURETIC PEPTIDE < 5 pg/mL (0-100)
[2018-04-15] MEDS ORDERED: ONDANSETRON HCL 4 MG/2 ML VIAL IVP ONE (19:00)
[2018-04-15] MEDS ORDERED: LABETALOL HCL 5 MG/ML 20 ML VIAL IVP ONE (19:15)
[2018-04-15] MEDS ORDERED: SODIUM CHLORIDE 0.9% 1,000 ML IV ONE (19:45)
[2018-04-15 20:26] LABS: APPEARANCE,URINE CLEAR (CLEAR); BILIRUBIN,URINE NEGATIVE (NEGATIVE); GLUCOSE, URINE (UA) NEGATIVE (NEGATIVE); KETONES,URINE NEGATIVE (NEGATIVE); LEUKOCYTE ESTERASE ,URINE NEGATIVE (NEGATIVE); NITRATE,URINE NEGATIVE (NEGATIVE); OCCULT BLOOD,URINE NEGATIVE (NEGATIVE); PROTEIN,URINE NEGATIVE (NEGATIVE); UROBILINOGEN,URINE 0.2 mg/dL (<=1.0)
[2018-04-15 20:58] LABS: BACTERIA,URINE None Seen /HPF (None Seen); RBC,URINE None Seen /HPF (0-2); WBC,URINE None Seen /HPF (0-5)
[2018-04-15 20:59] LABS: SQUAMOUS EPITHELIAL CELL,UR Rare /LPF (None Seen)
[2018-04-15] MEDS ORDERED: PB/HYOSCY/ATR/SCOP/LIDO/MAALOX 55 ML BOTTLE PO ONE (21:30)
[2018-04-15 21:40] LABS: AMPHET/METH SCREEN,URINE NEGATIVE (NEGATIVE); BARBITURATE SCREEN, URINE NEGATIVE (NEGATIVE); BENZODIAZEPINES SCREEN,URINE POSITIVE (NEGATIVE); CANNABINOID SCREEN,URINE NEGATIVE (NEGATIVE); COCAINE SCREEN,URINE NEGATIVE (NEGATIVE); METHADONE SCREEN, URINE NEGATIVE (NEGATIVE); OPIATE SCREEN,URINE NEGATIVE (NEGATIVE)
[2018-04-15 21:43] LABS: PHENCYCLIDINE SCREEN,URINE NEGATIVE (NEGATIVE)
[2018-04-15 22:02] VITALS: BP 122/82
== END 2018-04-15 22:10 | disposition home or self-care (01) ==
LOC: EMS 17:43
DX: I82.492 Acute embolism and thrombosis of other specified deep vein of left lower extremity (principal); R07.9 Chest pain, unspecified; F32.9 Major depressive disorder, single episode, unspecified; F20.9 Schizophrenia, unspecified; I10 Essential (primary) hypertension; F17.220 Nicotine dependence, chewing tobacco, uncomplicated; F12.90 Cannabis use, unspecified, uncomplicated; Z88.0 Allergy status to penicillin; Z88.5 Allergy status to narcotic agent; Z88.6 Allergy status to analgesic agent; Z79.899 Other long term (current) drug therapy
CPT/HCPCS: 36415; 71045; 80053; 80307; 81001; 83690; 83880; 84484; 85025; 93005; 93971; 96374; 96375; 96376; 99285; J2270; J2405; J3490; J7030; Z7610

== ENCOUNTER 2018-04-17 23:35 | Emergency (ER) | payer OTHER ==
[~2018-04-17] VITALS: Ht 182.9 cm; Wt 122.7 kg
[~2018-04-17 23:35] MED LIST changes: +HYD25 PO; +TRAM50TA4 PO
[2018-04-17] MEDS ORDERED: TRAM50TA4 PO (23:52)
[2018-04-17] MEDS ORDERED: LISI-662 PO (23:52)
[2018-04-18] MEDS ORDERED: CARBAMIDE PEROXIDE 6.5% 15 ML OTIC SOLUTION AS ONE (00:15)
[2018-04-18 01:51] VITALS: BP 124/78
== END 2018-04-18 02:04 | disposition home or self-care (01) ==
LOC: EMS 23:36
DX: H61.22 Impacted cerumen, left ear (principal); I10 Essential (primary) hypertension; F20.9 Schizophrenia, unspecified; F32.9 Major depressive disorder, single episode, unspecified; G89.29 Other chronic pain; F17.210 Nicotine dependence, cigarettes, uncomplicated; F12.90 Cannabis use, unspecified, uncomplicated; Z88.6 Allergy status to analgesic agent; Z88.0 Allergy status to penicillin; Z88.8 Allergy status to other drugs, medicaments and biological substances; Z79.899 Other long term (current) drug therapy
CPT/HCPCS: 69209; 99283

== ENCOUNTER 2018-04-22 22:16 | Inpatient (IN) | payer MEDICAID, OTHER ==
[~2018-04-22] VITALS: Ht 182.9 cm; Wt 122.6 kg
[~2018-04-22 22:16] MED LIST changes: -LISI-661 PO; +LISI-662 PO
[2018-04-23 00:04] LABS: AMPHET/METH SCREEN,URINE NEGATIVE (NEGATIVE); BARBITURATE SCREEN, URINE NEGATIVE (NEGATIVE); BENZODIAZEPINES SCREEN,URINE NEGATIVE (NEGATIVE); CANNABINOID SCREEN,URINE NEGATIVE (NEGATIVE); COCAINE SCREEN,URINE NEGATIVE (NEGATIVE); METHADONE SCREEN, URINE NEGATIVE (NEGATIVE); OPIATE SCREEN,URINE NEGATIVE (NEGATIVE); PHENCYCLIDINE SCREEN,URINE NEGATIVE (NEGATIVE)
[2018-04-23 02:01] LABS: BASOPHILS % (AUTO) 0.8 % (0.0-2.0); EOSINOPHILS % (AUTO) 0.6 % (1.0-6.0); HEMATOCRIT 40.7 % (41-53); HEMOGLOBIN 13.1 g/dL (13.5-17.5); LYMPHOCYTES # (AUTO) 2.7 K/uL (1.0-4.8); LYMPHOCYTES % (AUTO) 31.6 % (22.0-44.0); MEAN CORPUSCULAR HEMOGLOBIN 25.4 pg (26.0-34.0); MEAN CORPUSCULAR HGB CONC 32.2 G/dL (31.0-37.0); MEAN CORPUSCULAR VOLUME 79 fL (80-100); MONOCYTES # (AUTO) 0.5 K/uL (0.1-1.0); NEUTROPHILS # (AUTO) 5.2 K/uL (1.8-7.7); PLATELET COUNT (AUTO) 186 K/uL (150-450); RED BLOOD CELL COUNT(AUTO) 5.15 MIL/uL (4.50-5.90); RED CELL DISTRIBUTION WIDTH 19.3 % (11.5-14.5)
[2018-04-23 02:09] LABS: ANION GAP 12 mmol/L (8-16); CALCIUM, TOTAL 8.7 mg/dL (8.8-10.5); CARBON DIOXIDE 26 mmol/L (22-29); CHLORIDE 104 mmol/L (98-107); GLOMERULAR FILTR. RATE CALC > 60 mL/min (>60); GLUCOSE,RANDOM 116 mg/dL (70-110); POTASSIUM 3.8 mmol/L (3.5-5.1); SODIUM SERUM 142 mmol/L (136-145); UREA NITROGEN, BLOOD 11 mg/dL (7-18)
[2018-04-23 02:14] LABS: ALANINE AMINOTRANSFERASE 46 U/L (12-78); ALBUMIN 3.9 g/dL (3.4-5.0); ALKALINE PHOSPHATASE 57 U/L (46-116); ASPARTATE AMINOTRANSFERASE 24 U/L (15-37); BILIRUBIN,TOTAL 0.4 mg/dL (0.1-1.0); TOTAL PROTEIN, SERUM 7.7 g/dL (6.4-8.2)
[2018-04-23] MEDS ORDERED: HALOPERIDOL 5 MG TABLET PO PRN (03:30)
[2018-04-23] MEDS ORDERED: PNEUMOCOCCAL VACCINE POLYVALENT 0.5 ML VIAL [PPSV23] IM ONE (04:30)
[2018-04-23] MEDS ORDERED: NICOTINE 14 MG/24 HOUR PATCH TD PRN (06:15)
[2018-04-23] MEDS ORDERED: GuaiFENesin/D-METHORPHAN [SUGAR-FREE] 200-20MG/10 ML SYRUP UDCUP PO PRN (06:15)
[2018-04-23] MEDS ORDERED: CloNIDine HCL 0.1 MG TABLET PO PRN (06:15)
[2018-04-23] MEDS ORDERED: DOCUSATE SODIUM 100 MG CAPSULE PO PRN (06:15)
[2018-04-23] MEDS ORDERED: MAG HYDROX/AL HYDROX/SIMETH ES 30 ML SUSPENSION UDCUP PO PRN (06:15)
[2018-04-23] MEDS ORDERED: LOPERAMIDE HCL 2 MG CAPSULE PO PRN (06:15)
[2018-04-23] MEDS ORDERED: ONDANSETRON HCL 4 MG TABLET PO PRN (06:15)
[2018-04-23] MEDS ORDERED: ALBUTEROL SULFATE HFA 90 MCG/PUFF 8 GM INHALER IH PRN (06:15)
[2018-04-23] MEDS ORDERED: MAGNESIUM HYDROXIDE SUSPENSION 30 ML UDCUP PO PRN (06:15)
[2018-04-23] MEDS ORDERED: PETROLATUM,WHITE 71 GM JELLY TP PRN (06:15)
[2018-04-23] MEDS ORDERED: GABAPENTIN 300 MG CAPSULE PO SCH (09:00)
[2018-04-23] MEDS: LISINOPRIL 10 MG TABLET PO SCH (09:39)
[2018-04-23] MEDS: FOLIC ACID 1 MG TABLET PO SCH (09:39)
[2018-04-23] MEDS: THIAMINE HCL 100 MG TABLET PO SCH ×2 (09:39→16:34)
[2018-04-23] MEDS: LORazepam 2 MG TABLET PO PRN ×3 (10:24→19:03)
[2018-04-23] MEDS: RIVAROXABAN 15 MG TABLET PO SCH (16:31)
[2018-04-23] MEDS: GABAPENTIN 400 MG CAPSULE PO SCH (16:34)
[2018-04-23] MEDS: DULoxetine HCL 60 MG CAPSULE PO SCH (17:29)
[2018-04-23] MEDS: TraMADol HCL 50 MG TABLET PO PRN (19:03)
[2018-04-23] MEDS: ZOLPIDEM TARTRATE 10 MG TABLET PO PRN (21:19)
[2018-04-24 03:04] VITALS: BP 161/98
[2018-04-24] MEDS: TraMADol HCL 50 MG TABLET PO PRN ×4 (03:04→21:58)
[2018-04-24] MEDS: LORazepam 2 MG TABLET PO PRN ×4 (03:04→17:42)
[2018-04-24] MEDS: RIVAROXABAN 15 MG TABLET PO SCH ×2 (07:22→17:42)
[2018-04-24] MEDS: DULoxetine HCL 60 MG CAPSULE PO SCH ×2 (09:00→16:26)
[2018-04-24] MEDS: FOLIC ACID 1 MG TABLET PO SCH (09:00)
[2018-04-24] MEDS: GABAPENTIN 400 MG CAPSULE PO SCH ×3 (09:23→16:22)
[2018-04-24] MEDS: LISINOPRIL 10 MG TABLET PO SCH (09:23)
[2018-04-24 09:24] VITALS: BP 157/86
[2018-04-24] MEDS: THIAMINE HCL 100 MG TABLET PO SCH ×2 (12:13→16:24)
[2018-04-24] MEDS ORDERED: TraMADol HCL 50 MG TABLET PO PRN (13:00)
[2018-04-24 15:03] VITALS: BP 149/84
[2018-04-24 16:51] VITALS: BP 124/89
[2018-04-24 17:44] VITALS: BP 118/78
[2018-04-24 21:58] VITALS: BP 124/55
[2018-04-24] MEDS: ZOLPIDEM TARTRATE 10 MG TABLET PO PRN (22:42)
[2018-04-25] MEDS: RIVAROXABAN 15 MG TABLET PO SCH ×2 (07:30→16:35)
[2018-04-25] MEDS: LORazepam 2 MG TABLET PO PRN ×4 (08:02→21:31)
[2018-04-25] MEDS: DULoxetine HCL 60 MG CAPSULE PO SCH ×2 (08:02→16:35)
[2018-04-25] MEDS: GABAPENTIN 400 MG CAPSULE PO SCH ×3 (08:02→16:35)
[2018-04-25] MEDS: THIAMINE HCL 100 MG TABLET PO SCH ×2 (08:02→16:35)
[2018-04-25] MEDS: FOLIC ACID 1 MG TABLET PO SCH (08:02)
[2018-04-25] MEDS: TraMADol HCL 50 MG TABLET PO PRN ×4 (08:02→21:31)
[2018-04-25] MEDS: LISINOPRIL 10 MG TABLET PO SCH (08:02)
[2018-04-25] MEDS: ZOLPIDEM TARTRATE 10 MG TABLET PO PRN (23:48)
[2018-04-26] MEDS: RIVAROXABAN 15 MG TABLET PO SCH (06:50)
[2018-04-26] MEDS ORDERED: FOLI1 PO (09:26)
[2018-04-26] MEDS ORDERED: LISI-661 PO (09:26)
[2018-04-26] MEDS ORDERED: RIVA15T PO (09:29)
[2018-04-26] MEDS ORDERED: THIA100T67 PO (09:30)
[2018-04-26] MEDS: DULoxetine HCL 60 MG CAPSULE PO SCH (09:39)
[2018-04-26] MEDS: TraMADol HCL 50 MG TABLET PO PRN (09:39)
[2018-04-26] MEDS: GABAPENTIN 400 MG CAPSULE PO SCH (09:39)
[2018-04-26] MEDS: THIAMINE HCL 100 MG TABLET PO SCH (09:39)
[2018-04-26] MEDS: FOLIC ACID 1 MG TABLET PO SCH (09:40)
[2018-04-26] MEDS: LISINOPRIL 10 MG TABLET PO SCH (09:40)
== END 2018-04-26 10:30 | disposition home or self-care (01) | DRG 751 ==
LOC: EMS 22:17 → 3EI 04-23 03:30
PROVIDERS: ADMIT Psychiatry & Neurology Psychiatry; ATTEND Psychiatry & Neurology Psychiatry
DX: F33.2 Major depressive disorder, recurrent severe without psychotic features (principal); R45.851 Suicidal ideations; G40.909 Epilepsy, unspecified, not intractable, without status epilepticus; I10 Essential (primary) hypertension; G89.4 Chronic pain syndrome; E66.9 Obesity, unspecified; F10.229 Alcohol dependence with intoxication, unspecified; F12.90 Cannabis use, unspecified, uncomplicated; F17.210 Nicotine dependence, cigarettes, uncomplicated; Z72.89 Other problems related to lifestyle; Z88.0 Allergy status to penicillin; Z86.73 Personal history of transient ischemic attack (TIA), and cerebral infarction without residual deficits; Z86.711 Personal history of pulmonary embolism; Z88.4 Allergy status to anesthetic agent; Z88.8 Allergy status to other drugs, medicaments and biological substances; Z79.01 Long term (current) use of anticoagulants; Z68.36 Body mass index [BMI] 36.0-36.9, adult; Z59.0 Homelessness; Z91.5 Personal history of self-harm
CPT/HCPCS: 93005; 99285; G0480

== ENCOUNTER 2018-06-01 21:08 | Emergency (ER) | payer MEDICAID, OTHER ==
[~2018-06-01] VITALS: Ht 182.9 cm; Wt 127.3 kg
[~2018-06-01 21:08] MED LIST changes: +FOLI1 PO; -HYD25 PO; +LISI-661 PO; -LISI-662 PO; +THIA100T67 PO; -TRAM50TA4 PO
[2018-06-01] MEDS ORDERED: TRAM50TA4 PO (21:30)
[2018-06-01] MEDS ORDERED: PROPARACAINE HCL 0.5% 15 ML OPHTHALMIC SOLUTION OU ONE (22:00)
[2018-06-01] MEDS ORDERED: TETRACAINE HCL/PF 0.5% 4 ML OPHTHALMIC SOLUTION OU ONE (22:30)
[2018-06-01] MEDS ORDERED: TETRACAINE HCL VISCOUS 0.5% 5 ML OPHTHALMIC SOLUTION OU ONE (22:30)
[2018-06-01 22:40] LABS: BASOPHILS % (AUTO) 0.9 % (0.0-2.0); EOSINOPHILS % (AUTO) 1.6 % (1.0-6.0); HEMATOCRIT 35.4 % (41-53); HEMOGLOBIN 11.3 g/dL (13.5-17.5); LYMPHOCYTES # (AUTO) 2.2 K/uL (1.0-4.8); LYMPHOCYTES % (AUTO) 37.3 % (22.0-44.0); MEAN CORPUSCULAR HEMOGLOBIN 24.5 pg (26.0-34.0); MEAN CORPUSCULAR VOLUME 77 fL (80-100); MONOCYTES # (AUTO) 0.6 K/uL (0.1-1.0); MONOCYTES % (AUTO) 9.8 % (2.0-9.0); NEUTROPHILS % (AUTO) 50.4 % (40.0-70.0); PLATELET COUNT (AUTO) 203 K/uL (150-450); RED BLOOD CELL COUNT(AUTO) 4.62 MIL/uL (4.50-5.90); RED CELL DISTRIBUTION WIDTH 17.3 % (11.5-14.5)
[2018-06-01 22:52] LABS: ANION GAP 8 mmol/L (8-16); CALCIUM, TOTAL 8.4 mg/dL (8.8-10.5); CARBON DIOXIDE 27 mmol/L (22-29); CHLORIDE 105 mmol/L (98-107); CREATININE 0.91 mg/dL (0.60-1.30); GLOMERULAR FILTR. RATE CALC > 60 mL/min (>60); GLUCOSE,RANDOM 97 mg/dL (70-110); POTASSIUM 3.6 mmol/L (3.5-5.1); SODIUM SERUM 140 mmol/L (136-145); UREA NITROGEN, BLOOD 13 mg/dL (7-18)
[2018-06-01 22:54] VITALS: BP 107/58
[2018-06-01 22:57] LABS: ALANINE AMINOTRANSFERASE 39 U/L (12-78); ALBUMIN 3.7 g/dL (3.4-5.0); ALKALINE PHOSPHATASE 46 U/L (46-116); ASPARTATE AMINOTRANSFERASE 38 U/L (15-37); BILIRUBIN,TOTAL 0.6 mg/dL (0.1-1.0); TOTAL PROTEIN, SERUM 7.1 g/dL (6.4-8.2)
[2018-06-01] MEDS ORDERED: TraMADol HCL 50 MG TABLET PO ONE (23:45)
== END 2018-06-01 23:51 | disposition left against medical advice (07) ==
LOC: EMS 21:10
DX: I82.492 Acute embolism and thrombosis of other specified deep vein of left lower extremity (principal); H16.8 Other keratitis; R07.89 Other chest pain; F32.9 Major depressive disorder, single episode, unspecified; I10 Essential (primary) hypertension; F20.9 Schizophrenia, unspecified; F17.210 Nicotine dependence, cigarettes, uncomplicated; F12.90 Cannabis use, unspecified, uncomplicated; Z88.5 Allergy status to narcotic agent; Z88.0 Allergy status to penicillin; Z88.6 Allergy status to analgesic agent; Z79.899 Other long term (current) drug therapy
CPT/HCPCS: 93005; 93971

== ENCOUNTER 2018-08-03 01:45 | Inpatient (IN) | payer MEDICAID, OTHER ==
[~2018-08-03] VITALS: Ht 182.9 cm; Wt 126.1 kg
[~2018-08-03 01:45] MED LIST changes: -DULO20CA30 PO; -FOLI1 PO; -THIA100T67 PO; +TRAM50TA4 PO
[2018-08-03 05:20] LABS: AMPHET/METH SCREEN,URINE NEGATIVE (NEGATIVE); BARBITURATE SCREEN, URINE NEGATIVE (NEGATIVE); BENZODIAZEPINES SCREEN,URINE POSITIVE (NEGATIVE); CANNABINOID SCREEN,URINE NEGATIVE (NEGATIVE); COCAINE SCREEN,URINE NEGATIVE (NEGATIVE); METHADONE SCREEN, URINE NEGATIVE (NEGATIVE); OPIATE SCREEN,URINE NEGATIVE (NEGATIVE); PHENCYCLIDINE SCREEN,URINE NEGATIVE (NEGATIVE)
[2018-08-03] MEDS ORDERED: ONDANSETRON HCL 4 MG TABLET PO ONE (05:45)
[2018-08-03] MEDS ORDERED: GABAPENTIN 100 MG CAPSULE PO ONE (06:00)
[2018-08-03 06:11] LABS: EOSINOPHILS % (AUTO) 0.7 % (1.0-6.0); LYMPHOCYTES # (AUTO) 1.6 K/uL (1.0-4.8); LYMPHOCYTES % (AUTO) 40.4 % (22.0-44.0); MEAN CORPUSCULAR HEMOGLOBIN 24.5 pg (26.0-34.0); MEAN CORPUSCULAR HGB CONC 32.3 G/dL (31.0-37.0); MEAN CORPUSCULAR VOLUME 76 fL (80-100); MONOCYTES # (AUTO) 0.5 K/uL (0.1-1.0); MONOCYTES % (AUTO) 13.7 % (2.0-9.0); NEUTROPHILS # (AUTO) 1.8 K/uL (1.8-7.7); NEUTROPHILS % (AUTO) 44.2 % (40.0-70.0); PLATELET COUNT (AUTO) 123 K/uL (150-450); RED BLOOD CELL COUNT(AUTO) 4.89 MIL/uL (4.50-5.90); RED CELL DISTRIBUTION WIDTH 16.7 % (11.5-14.5)
[2018-08-03 06:41] LABS: ANION GAP 13 mmol/L (8-16); CALCIUM, TOTAL 8.5 mg/dL (8.8-10.5); CARBON DIOXIDE 27 mmol/L (22-29); CHLORIDE 99 mmol/L (98-107); CREATININE 0.93 mg/dL (0.60-1.30); GLOMERULAR FILTR. RATE CALC > 60 mL/min (>60); GLUCOSE,RANDOM 103 mg/dL (70-110); POTASSIUM 3.4 mmol/L (3.5-5.1); SODIUM SERUM 139 mmol/L (136-145); UREA NITROGEN, BLOOD 18 mg/dL (7-18)
[2018-08-03 06:46] LABS: ALANINE AMINOTRANSFERASE 72 U/L (12-78); ALBUMIN 3.6 g/dL (3.4-5.0); ALKALINE PHOSPHATASE 49 U/L (46-116); ASPARTATE AMINOTRANSFERASE 66 U/L (15-37); BILIRUBIN,TOTAL 0.4 mg/dL (0.1-1.0); TOTAL PROTEIN, SERUM 7.1 g/dL (6.4-8.2)
[2018-08-03] MEDS ORDERED: LOPERAMIDE HCL 2 MG CAPSULE PO PRN (12:30)
[2018-08-03] MEDS: MULTIVITAMINS WITH MINERALS, THERAPEUTIC TABLET PO SCH ×2 (12:30→13:08)
[2018-08-03] MEDS: THIAMINE HCL 100 MG TABLET PO SCH ×3 (12:30→20:11)
[2018-08-03] MEDS ORDERED: HydrOXYzine PAMOATE 50 MG CAPSULE PO PRN (12:30)
[2018-08-03] MEDS: FOLIC ACID 1 MG TABLET PO SCH ×2 (12:30→12:56)
[2018-08-03] MEDS ORDERED: GuaiFENesin/D-METHORPHAN [SUGAR-FREE] 200-20MG/10 ML SYRUP UDCUP PO PRN (12:30)
[2018-08-03] MEDS ORDERED: LISI-662 PO (12:40)
[2018-08-03] MEDS ORDERED: RIVA20TA PO (12:40)
[2018-08-03] MEDS: CYANOCOBALAMIN 1,000 MCG/ML VIAL IM ONE ×2 (12:54→13:11)
[2018-08-03 14:45] VITALS: BP 137/88
[2018-08-03 15:46] VITALS: BP 137/94
[2018-08-03] MEDS: HALOPERIDOL 5 MG TABLET PO PRN ×2 (17:13→22:45)
[2018-08-03] MEDS: LORazepam 2 MG TABLET PO PRN ×2 (17:14→22:45)
[2018-08-03 20:06] VITALS: BP 100/67
[2018-08-03] MEDS: ZOLPIDEM TARTRATE 10 MG TABLET PO PRN (20:11)
[2018-08-03 22:46] VITALS: BP 137/103
[2018-08-04] MEDS: LORazepam 2 MG TABLET PO PRN ×4 (03:33→23:26)
[2018-08-04] MEDS ORDERED: LOPERAMIDE HCL 2 MG CAPSULE PO PRN (06:30)
[2018-08-04] MEDS ORDERED: CloNIDine HCL 0.1 MG TABLET PO PRN (06:30)
[2018-08-04] MEDS ORDERED: POTASSIUM CHLORIDE 10 MEQ ER TABLET PO ONE (06:30)
[2018-08-04] MEDS ORDERED: GuaiFENesin/D-METHORPHAN [SUGAR-FREE] 200-20MG/10 ML SYRUP UDCUP PO PRN (06:30)
[2018-08-04] MEDS ORDERED: MAG HYDROX/AL HYDROX/SIMETH ES 30 ML SUSPENSION UDCUP PO PRN (06:30)
[2018-08-04] MEDS ORDERED: ACETAMINOPHEN 325 MG TABLET PO PRN (06:30)
[2018-08-04] MEDS ORDERED: ONDANSETRON HCL 4 MG TABLET PO PRN (06:30)
[2018-08-04] MEDS ORDERED: PETROLATUM,WHITE 71 GM JELLY TP PRN (06:30)
[2018-08-04] MEDS ORDERED: ALBUTEROL SULFATE HFA 90 MCG/PUFF 8 GM INHALER IH PRN (06:30)
[2018-08-04] MEDS ORDERED: DOCUSATE SODIUM 100 MG CAPSULE PO PRN (06:30)
[2018-08-04] MEDS ORDERED: MAGNESIUM HYDROXIDE SUSPENSION 30 ML UDCUP PO PRN (06:30)
[2018-08-04] MEDS: MULTIVITAMINS WITH MINERALS, THERAPEUTIC TABLET PO SCH (08:42)
[2018-08-04] MEDS: THIAMINE HCL 100 MG TABLET PO SCH ×2 (08:43→16:29)
[2018-08-04] MEDS: FOLIC ACID 1 MG TABLET PO SCH (08:43)
[2018-08-04] MEDS: LORazepam 2 MG TABLET PO SCH ×4 (08:43→20:43)
[2018-08-04 16:00] VITALS: BP 115/78
[2018-08-04] MEDS: ZOLPIDEM TARTRATE 10 MG TABLET PO PRN (20:43)
[2018-08-05 02:11] VITALS: BP 128/85
[2018-08-05] MEDS: LORazepam 2 MG TABLET PO PRN (03:16)
[2018-08-05 08:08] VITALS: BP 140/77
[2018-08-05] MEDS: THIAMINE HCL 100 MG TABLET PO SCH ×2 (08:48→16:15)
[2018-08-05] MEDS: FOLIC ACID 1 MG TABLET PO SCH (08:48)
[2018-08-05] MEDS: GABAPENTIN 400 MG CAPSULE PO SCH ×3 (08:48→16:15)
[2018-08-05] MEDS: MULTIVITAMINS WITH MINERALS, THERAPEUTIC TABLET PO SCH (08:48)
[2018-08-05] MEDS: LISINOPRIL 20 MG TABLET PO SCH (08:49)
[2018-08-05] MEDS: DULoxetine HCL 30 MG CAPSULE PO SCH (08:49)
[2018-08-05] MEDS: LORazepam 2 MG TABLET PO SCH ×4 (08:49→20:17)
[2018-08-05 16:00] VITALS: BP 136/81
[2018-08-05] MEDS ORDERED: RIVAROXABAN 20 MG TABLET PO SCH (17:00)
[2018-08-05] MEDS: ZOLPIDEM TARTRATE 10 MG TABLET PO PRN (20:17)
[2018-08-06 01:26] VITALS: BP 138/89
[2018-08-06] MEDS: LORazepam 2 MG TABLET PO PRN ×2 (01:26→04:46)
[2018-08-06] MEDS ORDERED: LORazepam 1 MG TABLET PO PRN (07:00)
[2018-08-06 08:00] VITALS: BP 135/85
[2018-08-06] MEDS ORDERED: DULO30CA2 PO ×2 (08:42→09:24)
[2018-08-06] MEDS: GABAPENTIN 400 MG CAPSULE PO SCH (08:53)
[2018-08-06] MEDS: LISINOPRIL 20 MG TABLET PO SCH (08:53)
[2018-08-06] MEDS: DULoxetine HCL 30 MG CAPSULE PO SCH (08:57)
[2018-08-06] MEDS: THIAMINE HCL 100 MG TABLET PO SCH (08:58)
[2018-08-06] MEDS: FOLIC ACID 1 MG TABLET PO SCH (08:58)
[2018-08-06] MEDS: MULTIVITAMINS WITH MINERALS, THERAPEUTIC TABLET PO SCH (08:58)
[2018-08-06] MEDS ORDERED: LORazepam 1 MG TABLET PO SCH (09:00)
[2018-08-06 09:26] VITALS: BP 135/85
[2018-08-07] MEDS ORDERED: LORazepam 1 MG TABLET PO PRN (07:00)
== END 2018-08-06 14:40 | disposition home or self-care (01) | DRG 751 ==
LOC: EMS 01:46 → AHU 14:31 → B3A 08-04 02:28
DX: F33.2 Major depressive disorder, recurrent severe without psychotic features (principal); R45.851 Suicidal ideations; E66.01 Morbid (severe) obesity due to excess calories; K70.30 Alcoholic cirrhosis of liver without ascites; F20.9 Schizophrenia, unspecified; F10.229 Alcohol dependence with intoxication, unspecified; G40.909 Epilepsy, unspecified, not intractable, without status epilepticus; G89.4 Chronic pain syndrome; I10 Essential (primary) hypertension; Y90.8 Blood alcohol level of 240 mg/100 ml or more; Z79.01 Long term (current) use of anticoagulants; Z79.899 Other long term (current) drug therapy; Z86.711 Personal history of pulmonary embolism; Z86.718 Personal history of other venous thrombosis and embolism; Z87.891 Personal history of nicotine dependence; Z91.5 Personal history of self-harm
CPT/HCPCS: 99291; G0480; J3420; Q0162